=== PATIENT | female | born 1990 | race Caucasian/White ===

== ENCOUNTER 2019-03-14 20:03 | Emergency (ER) | payer OTHER ==
[~2019-03-14] VITALS: Ht 160 cm; Wt 53.7 kg
[2019-03-14 20:06] VITALS: BP 119/77; PULSE 102; RESP 19; Ht 160 cm; Wt 53.7 kg
--- NOTE | 2019-03-14 20:16 | ERD ---
ER Documentation Chief Complaint Chief Complaint ST WITH FEVER X2DAYS; TYLENOL TAKEN AT 1800 HPI This is a 28-year-old female who presents the emergency department with complaints of throat pain since yesterday. Works as an [employer] at the [employer]. 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 Took Tylenol at around 1830 today. LMP: 02/23/2019. G0, . Denies headache, head injury, loss of consciousness, dizziness, neck pain, neck stiffness, difficulty swallowing, difficulty breathing lying flat, shoulder pain, chest pain, back pain, abdominal pain, nausea, vomiting, constipation, diarrhea, urinary symptoms, or possibility being , loss of bowel and bladder control, trauma, injury, falls, difficulty walking due to pain, numbness or tingling sensation, calf pain, recent travel, recent major surgery in the last 3 weeks, calf pain, recent long travel, recent exposure to any illness, recent antibiotic use in the last 3 months, fever, chills, seizures. Past medical history: Asthma. Surgical history: Social: Denies smoking, use of alcoholic beverages, use of illegal drugs. ROS All systems reviewed and are negative except as per history of present illness. Medications Home Meds Active Scripts Amoxicillin/Potassium Clav (Amox-Clav 875-125 mg Tablet) 875-125 mg Tab, 1 TAB PO BID for 7 Days, #14 TAB Prov:DANIELE ALVAREZAR F 03/14/19 Acetaminophen* (Tylophen*) 500 Mg Capsule, 1 CAP PO Q6H PRN for PAIN AND OR ELEVATED TEMP, #20 CAP Prov:PASILABAN,DANIELEAR F 03/14/19 Ibuprofen* (Motrin*) 600 Mg Tab, 600 MG PO Q8 PRN for PAIN AND OR ELEVATED TEMP, #30 TAB Prov:PASILABAN,KLAR F 03/14/19 Allergies Allergies: Coded Allergies: No Known Allergy (Unverified , 03/14/19) Physical Exam Vitals Vital Signs Date Temp Pulse Resp B/P (MAP) Pulse Ox O2 O2 Flow FiO2 Time Delivery Rate 03/14/19 99.4 102 19 119/77 98 20:06 (91) Physical Exam Const: No acute distress Head: Atraumatic Eyes: Normal Conjunctiva ENT: Normal External Ears, Nose and Mouth. Bilateral ears: TMs are not erythematous. No bleeding. No discharge. No hearing loss. No mastoid tenderness. Nose: There is no frontal or maxillary sinus tenderness palpation. Throat: Uvula is in midline and nondisplaced. Tonsils are +2 bilaterally with redness but without exudates. Tolerating secretions. Patent airway. Speaks full and clear sentences. No tripoding. Neck: Full range of motion. No meningismus. No nuchal rigidity. No signs of meningeal irritation. Resp: Clear to auscultation bilaterally. No accessory muscle use in breathing. Cardio: Regular rate and rhythm, no murmurs Abd: Soft, non tender, non distended. Normal bowel sounds. Negative White sign. Skin: No petechiae or rashes. Color appears normal for ethnicity. No skin tenting. No signs of severe dehydration. Back: No midline or flank tenderness Ext: No cyanosis, or edema Neur: Awake and alert. No neurological deficits. Psych: Normal Mood and Affect Procedures/MDM Diagnostic tests: Offered diagnostic test but patient strongly refused. Stated that she prefers to be prescribed antibiotic. Patient prefers to be prescribed with Augmentin. Treatment: Not applicable. Re-evaluation: Not applicable. Differential diagnosis I have low suspicion for sepsis, meningitis, mastoiditis, peritonsillar abscess, airway obstruction, severe uvulitis, pneumonia, bronchospasm, angioedema. Final diagnosis: Tonsillitis. Pharyngitis. Prescription: Augmentin. Motrin. Tylenol. Follow-up with PCP in the next 24-48 hours. Come back here in the emergency department for any new symptoms or any worsening symptoms. All questions and concerns were answered. Patient and family members verbalized understanding and agreed with plan of care. Hemodynamically stable on discharge. Departure Diagnosis: Primary Impression: Sore throat Additional Impressions: Tonsillitis Pharyngitis Condition: Stable Additional Instructions: Follow-up with PCP in the next 24-48 hours. Come back here in the emergency department for any new symptoms or any worsening symptoms. NIXON ALVAREZ Mar 14, 2019 20:16
[2019-03-14] MEDS ORDERED: ACET500C5 PO (20:25)
[2019-03-14] MEDS ORDERED: IBUP-1542 PO (20:25)
[2019-03-14] MEDS ORDERED: AMOX1TAB10 PO (20:27)
== END 2019-03-14 20:43 | disposition home or self-care (01) ==
LOC: FTE 20:03
DX: J02.9 Acute pharyngitis, unspecified (principal); J03.90 Acute tonsillitis, unspecified
CPT/HCPCS: 99283